=== PATIENT | male | born 1940 | race Caucasian/White ===

== ENCOUNTER 2017-04-11 03:48 | Emergency (ER) | payer MEDICARE, OTHER ==
[2017-04-11 04:01] VITALS: BP 159/98
[2017-04-11] MEDS ORDERED: Lidocaine 1% 2 ML ONE (04:55)
--- NOTE | 2017-04-11 05:21 | EDM.PDOC ---
ED HPI GENERAL MEDICAL PROBLEM - General Chief Complaint: Respiratory Problem Stated Complaint: SOB Time Seen by Provider: 04/11/17 03:52 Source of Information: Reports: Patient, RN Notes Reviewed, Other (2 neighbors/ friends) History Limitations: Reports: No Limitations - History of Present Illness INITIAL COMMENTS - FREE TEXT/NARRATIVE: The patient states that he has been experiencing dyspnea with minimal exertion, and a cough productive of colorless phlegm, for approximately one year, but that it has been getting worse. He states that he has not had this medically evaluated. No recent fever. Here in the ED, the patient's oxygen saturation is noted to be about 89-91% on room air. The patient states that he was diagnosed with prostate cancer approximately October 2015. He does not know what stage it is. He has been receiving radiation therapy along with Lupron and Prolia injections every 6 months. He states that because of his condition, he has had to go to the bathroom frequently for about the past year, and the act of getting up to go to the bathroom causes him to have immediate dyspnea. The patient has a long smoking history, currently 1/2 pack per day, down from 1 pack per day, starting when he was 20 years old. The patient reports that he has had bilateral ankle edema for the past 2 or 3 months. The patient is very thin, but states that while he lost quite a bit of weight several years ago, he has not lost any weight recently. The patient's PCP is Dr. Boyd. - Related Data Allergies Allergy/AdvReac Type Severity Reaction Status Date / Time No Known Allergies Allergy Verified 04/11/17 04:03 Home Meds: Home Meds Denosumab [Prolia] 60 mg SUBCUT ASDIRECTED 04/11/17 [History] Leuprolide Acetate [Eligard] 45 mg SQ ASDIRECTED 04/11/17 [History] Tamsulosin [Flomax] 1 cap PO DAILY 04/11/17 [History] Past Medical History Genitourinary History: Reports: BPH Oncologic (Cancer) History: Reports: Prostate - Past Surgical History HEENT Surgical History: Reports: Oral Surgery (dental extractions) Dermatological Surgical History: Reports: Skin Graft (left thumb) Social & Family History - Tobacco Use Smoking Status *Q: Current Every Day Smoker Years of Tobacco use: 57 Packs/Tins Daily: 0.5 Packs/Tins Daily Comment: Down from 1 ppd - Caffeine Use Caffeine Use: Reports: None - Alcohol Use Alcohol Use History: Yes Alcohol Use Frequency: Socially - Recreational Drug Use Recreational Drug Use: No - Living Situation & Occupation Living situation: Reports: Single, Alone Occupation: Retired ([employer]) ED ROS GENERAL - Review of Systems Review Of Systems: See Below Constitutional: Reports: No Symptoms HEENT: Reports: No Symptoms Respiratory: Reports: Cough, Sputum (clear) Cardiovascular: Reports: Dyspnea on Exertion, Edema (bilateral ankles) Endocrine: Reports: No Symptoms GI/Abdominal: Reports: No Symptoms : Reports: No Symptoms Musculoskeletal: Reports: No Symptoms Skin: Reports: No Symptoms Neurological: Reports: No Symptoms Psychiatric: Reports: No Symptoms Hematologic/Lymphatic: Reports: No Symptoms Immunologic: Reports: No Symptoms ED EXAM, GENERAL - Physical Exam Exam: See Below Exam Limited By: No Limitations General Appearance: Alert, No Apparent Distress, Cachetic Eye Exam: Bilateral Eye: Normal Inspection Ears: Normal External Exam, Hearing Grossly Normal Nose: Normal Inspection, No Blood Throat/Mouth: Normal Inspection, Normal Lips, Normal Voice, No Airway Compromise Head: Atraumatic, Normocephalic Neck: Normal Inspection, Full Range of Motion Respiratory/Chest: No Respiratory Distress, No Accessory Muscle Use, Decreased Breath Sounds (throughout lungs, especially bibasillarly). No: Crackles, Rhonchi, Wheezing, Prolonged Expiration Cardiovascular: Normal Peripheral Pulses, Regular Rate, Rhythm, No Gallop, No JVD, No Murmur, No Rub Peripheral Pulses: 4+: Radial (L), Radial (R) GI/Abdominal: Normal Bowel Sounds, Soft, Non-Tender, No Organomegaly, No Distention, No Abnormal Bruit, No Mass (Male) Exam: Deferred Rectal (Males) Exam: Deferred Back Exam: Normal Inspection, Full Range of Motion, NT Extremities: Normal Inspection, Normal Range of Motion, Normal Capillary Refill , Other (1-2+ pitting edema bilateral ankles) Neurological: Alert, Oriented, Normal Cognition, No Motor/Sensory Deficits Psychiatric: Normal Affect Skin Exam: Warm, Dry, Intact, Normal Color, No Rash EKG INTERPRETATION EKG Date: 04/11/17 Time: 04:38 Rhythm: NSR Rate (Beats/Min): 89 [place]: LAD-Left [place] Deviation P-Wave: Enlarged (SIMI) QRS: Other (LPFB) ST-T: Other (J-point elevation in inferior leads. No ischemic changes.) QT: Normal Comparison: NA - No Prior EKG Course - Vital Signs Last Recorded V/S: Last Vital Signs Temp 36.6 C 04/11/17 03:51 Pulse 97 04/11/17 03:51 Resp 24 H 04/11/17 03:51 BP 159/98 H 04/11/17 03:51 Pulse Ox 91 L 04/11/17 03:51 - Orders/Labs/Meds Orders: Active Orders 24 hr Category Date Time Status EKG Documentation Completion [RC] STAT Care 04/11/17 04:21 Active Evaluate for Home Oxygen [RT Evaluate for Home Oxygen] Care 04/11/17 07:27 Inactive [RC] ASDIRECTED Evaluate for Home Oxygen [RT Oxygen Therapy w/Exercise] Care 04/11/17 07:27 Inactive [RC] ASDIRECTED RT Evaluate for Home Oxygen [RC] Click to Edit Care 04/11/17 07:30 Inactive RT Evaluate for Home Oxygen [RC] Click to Edit Care 04/11/17 07:36 Active Chest 2V [CR] Stat Exams 04/11/17 04:21 Taken Chest wo Cont [CT] Stat Exams 04/11/17 05:25 Taken Labs: Laboratory Tests 04/11/17 04/11/17 04/11/17 Range/Units 03:57 03:57 03:57 WBC 6.33 (4.23-9.07) K/mm3 RBC 5.77 (4.63-6.08) M/mm3 Hgb 16.8 (13.7-17.5) gm/L Hct 50.7 (40.1-51.0) % MCV 87.9 (79.0-92.2) fl MCH 29.1 (25.7-32.2) pg MCHC 33.1 (32.2-35.5) g/dl RDW Std Deviation 51.4 H (35.1-43.9) fL Plt Count 199 (163-337) K/mm3 MPV 10.3 (9.4-12.3) fl Neutrophils % (Manual) 53 (40-60) % Band Neutrophils % 0 (0-10) % Lymphocytes % (Manual) 41 H (20-40) % Atypical Lymphs % 0 % Monocytes % (Manual) 4 (2-10) % Eosinophils % (Manual) 2 (0.8-7.0) % Basophils % (Manual) 0 L (0.2-1.2) Platelet Estimate Adequate RBC Morph Comment Normal PT 10.7 (8.0-13.0) SECONDS INR 0.98 APTT 28 (22-36) SECONDS D-Dimer, Quantitative 0.37 (0.19-0.59) mg/L Puncture Site ABG pH (7.35-7.45) ABG pCO2 (35.0-45.0) mmHg ABG pO2 (80.0-100.0) mmHg ABG HCO3 (22.0-26.0) meq/L ABG O2 Saturation (96.0-97.0) % ABG Base Excess (-2-2.0) A-a Gradient mmHg O2 Delivery Device FiO2 (21.00-100.00) % Sodium 141 (136-145) mEq/L Potassium 4.4 (3.5-5.1) mEq/L Chloride 104 (98-107) mEq/L Carbon Dioxide 28 (21-32) mEq/L Anion Gap 13.4 (5-15) BUN 28 H (7-18) mg/dL Creatinine 1.1 (0.7-1.3) mg/dL Est Cr Clr Drug Dosing 42.58 mL/min Estimated GFR (MDRD) > 60 (>60) mL/min BUN/Creatinine Ratio 25.5 H (14-18) Glucose 118 H (83-115) mg/dL Lactic Acid (0.4-2.0) mmol/L Calcium 9.1 (8.5-10.1) mg/dL Total Bilirubin 0.6 (0.2-1.0) mg/dL AST 17 (15-37) U/L ALT 19 (16-63) U/L Alkaline Phosphatase 62 (46-116) U/L Troponin I < 0.017 (0.00-0.056) ng/mL NT-Pro-B Natriuret Pep 213 (0-450) pg/mL Total Protein 7.6 (6.4-8.2) g/dl Albumin 3.8 (3.4-5.0) g/dl Globulin 3.8 gm/dL Albumin/Globulin Ratio 1.0 (1-2) 04/11/17 04/11/17 Range/Units 05:00 05:18 WBC (4.23-9.07) K/mm3 RBC (4.63-6.08) M/mm3 Hgb (13.7-17.5) gm/L Hct (40.1-51.0) % MCV (79.0-92.2) fl MCH (25.7-32.2) pg MCHC (32.2-35.5) g/dl RDW Std Deviation (35.1-43.9) fL Plt Count (163-337) K/mm3 MPV (9.4-12.3) fl Neutrophils % (Manual) (40-60) % Band Neutrophils % (0-10) % Lymphocytes % (Manual) (20-40) % Atypical Lymphs % % Monocytes % (Manual) (2-10) % Eosinophils % (Manual) (0.8-7.0) % Basophils % (Manual) (0.2-1.2) Platelet Estimate RBC Morph Comment PT (8.0-13.0) SECONDS INR APTT (22-36) SECONDS D-Dimer, Quantitative (0.19-0.59) mg/L Puncture Site Rt radial ABG pH 7.40 (7.35-7.45) ABG pCO2 39.3 (35.0-45.0) mmHg ABG pO2 56.0 L (80.0-100.0) mmHg ABG HCO3 23.7 (22.0-26.0) meq/L ABG O2 Saturation 87.9 L (96.0-97.0) % ABG Base Excess -0.5 (-2-2.0) A-a Gradient 30 mmHg O2 Delivery Device Room air FiO2 0.00 L (21.00-100.00) % Sodium (136-145) mEq/L Potassium (3.5-5.1) mEq/L Chloride (98-107) mEq/L Carbon Dioxide (21-32) mEq/L Anion Gap (5-15) BUN (7-18) mg/dL Creatinine (0.7-1.3) mg/dL Est Cr Clr Drug Dosing mL/min Estimated GFR (MDRD) (>60) mL/min BUN/Creatinine Ratio (14-18) Glucose (83-115) mg/dL Lactic Acid 1.0 (0.4-2.0) mmol/L Calcium (8.5-10.1) mg/dL Total Bilirubin (0.2-1.0) mg/dL AST (15-37) U/L ALT (16-63) U/L Alkaline Phosphatase (46-116) U/L Troponin I (0.00-0.056) ng/mL NT-Pro-B Natriuret Pep (0-450) pg/mL Total Protein (6.4-8.2) g/dl Albumin (3.4-5.0) g/dl Globulin gm/dL Albumin/Globulin Ratio (1-2) Meds: Medications Discontinued Medications Generic Name Dose Route Start Last Admin Trade Name Freq PRN Reason Stop Dose Admin Lidocaine HCl Confirm 04/11/17 04:55 04/11/17 07:37 Xylocaine-Mpf 1% Administered 04/11/17 04:56 0.4 ml Dose Administration 2 mls @ as directed .ROUTE .STK-MED ONE - Re-Assessments/Exams Free Text/Narrative Re-Assessment/Exam: 04/11/17 05:27 Two-view chest radiograph reviewed. Cardiac silhouette is within normal limits. No pulmonary vascular congestion. No pleural effusions. There is substantial hyperinflation and diaphragmatic flattening, consistent with COPD. 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 There appear to be bilateral upper lobe infiltrates, versus pulmonary fibrosis. No pneumothorax. Formal read per the Radiologist pending. 04/11/17 05:31 I have ordered a CT of the chest without IV contrast to further elucidate the bilateral upper lobe opacities, whether they are an infiltrate or fibrosis. As above, the patient's chest radiograph shows a substantial hyperinflation, consistent with COPD, however, while the patient has diminished breath sounds throughout, especially at the bases, he does not have any wheezing, and his ABG shows hypoxemia, but is otherwise normal, without respiratory acidosis. Hypoxemia itself does not cause dyspnea, therefore it is unclear at this time what the cause of the patient's dyspnea is. 04/11/17 06:44 CT of the chest without contrast is read by virtual radiology as: 1. Moderate panlobular emphysematous changes. [place]a in the lung bases. 2. Multiple irregularly-shaped nodules seen bilaterally. Infection versus neoplasm 04/11/17 06:45 I would interpret from the CT findings that the patient does not have bilateral upper lobe infiltrates or pulmonary fibrosis, rather, the bibasilar bullae are responsible for the decreased density in the bases compared with the apices. The irregularly-shaped nodules are likely metastases. The patient does not have a fever or elevated WBC count. While he almost certainly has advanced COPD, his blood gas shows that he is not experiencing a COPD exacerbation. Because COPD exacerbations are almost always associated with infection, we can conclude that the patient does not appear to have an infectious process, at least at this time, therefore I do not see an indication for antibiotics. The remainder of the patient's workup is unremarkable. The patient does not have a pulmonary embolus, is not anemic, has not suffered an acute AR, is not in CHF or renal failure, and is not suffering from an electrolyte abnormality. I do not see a clear indication for admitting the patient to the hospital. With an oxygen saturation of 89-91% on room air, he would not qualify for oxygen at rest, although we can ambulate him here in the ED and see if he might qualify for oxygen with ambulation. 04/11/17 07:18 The respiratory therapist found that the patient's oxygen saturations dropped to about 80% with exertion, however, it did not come up with supplemental oxygen , until the patient rested. We will order the patient to receive supplemental oxygen 2 L/m continuously while at rest, and increase it to 6 L/m with exertion. I will advise the patient to increase his oxygen a few minutes prior to exerting himself. 04/11/17 07:40 The above was discussed with the patient and his 2 neighbors. The patient does not seem too excited about wearing oxygen at rest, but he is agreeable to wearing oxygen with exertion. Departure - Departure Time of Disposition: 07:42 Disposition: Home, Self-Care 01 Condition: Fair Clinical Impression: Emphysema of lung, Dyspnea on exertion - Discharge Information Referrals: Deepak Boyd MD [Primary Care Provider] - Forms: ED Department Discharge Additional Instructions: You were seen in the emergency room for shortness of breath with even minimal exertion, and a cough, for about the past year. Workup in the ER included blood work, an ABG, an ECG, a chest x-ray, and a CT scan of your chest. Your workup shows that you almost certainly have advanced emphysema, which is responsible for your symptoms, although you are not suffering from a COPD exacerbation. You do not have pneumonia. You do not have a blood clot in your lungs. You have not suffered a heart attack. You are not anemic, you are not suffering from congestive heart failure or kidney failure, and your electrolytes are normal. You qualify for supplemental oxygen with exertion, and you may benefit from supplemental oxygen at rest. We are recommending that you wear 2 L of oxygen at rest, and increase it to 6 L a few minutes before you exert yourself. Return it to 2 L after you rest again. We recommend that you follow-up with your PCP, Dr. Boyd, this coming week. If any other problems, please do not hesitate to return to the ER. - My Orders Last 24 Hours: My Active Orders 04/11/17 04:21 EKG Documentation Completion [RC] STAT Chest 2V [CR] Stat 04/11/17 05:25 Chest wo Cont [CT] Stat 04/11/17 07:27 Evaluate for Home Oxygen [RT Evaluate for Home Oxygen] [RC] ASDIRECTED Evaluate for Home Oxygen [RT Oxygen Therapy w/Exercise] [RC] ASDIRECTED 04/11/17 07:30 RT Evaluate for Home Oxygen [RC] Click to Edit - Assessment/Plan Last 24 Hours: My Active Orders 04/11/17 04:21 EKG Documentation Completion [RC] STAT Chest 2V [CR] Stat 04/11/17 05:25 Chest wo Cont [CT] Stat 04/11/17 07:27 Evaluate for Home Oxygen [RT Evaluate for Home Oxygen] [RC] ASDIRECTED Evaluate for Home Oxygen [RT Oxygen Therapy w/Exercise] [RC] ASDIRECTED 04/11/17 07:30 RT Evaluate for Home Oxygen [RC] Click to Edit
--- NOTE | 2017-04-12 10:25 | CT ---
CT chest Technique: Multiple axial sections through the chest were obtained. Intravenous contrast was not utilized. Comparison: Prior chest x-ray performed earlier on the same day. Findings: Diffuse appearing interstitial fibrosis with diffuse emphysematous change. Both lungs show scattered nodules which are more prominent on the right side. Nodular pleural thickening is seen within the left lung base measuring 9 mm. Lungs otherwise are clear. Bone window settings show scattered degenerative endplate spurring noted within the spine. Impression: 1. Severe emphysematous change with diffuse interstitial fibrosis. 2. Small scattered irregular nodules within both lungs, more numerous on the right side. Differential includes scattered areas of bronchopneumonia versus metastatic nodules. Treatment as infection could be considered with repeat noncontrast chest CT obtained in 6 weeks. Diagnostic code #9 I agree with preliminary report issued by [facility] ([facility] preliminary report dictated on 04/11/17, 7:29 AM Central Time)
--- NOTE | 2017-04-12 10:25 | CR ---
Chest: Two views of the chest were obtained. Comparison: Previous chest x-ray of 10/18/09. Heart size and mediastinum are within normal limits. Lungs are hyperinflated compatible with emphysematous change. Questionably increased lung markings from prior study. Difficult to exclude superimposed bronchitis with chronic change. Degenerative spurring is noted within the spine. Impression: 1. Emphysematous change. 2. Questionable increased lung markings from prior study and difficult to exclude bronchitis superimposed upon chronic change. 3. Other incidental findings. Diagnostic code #3
== END 2017-04-11 08:15 | disposition home or self-care (01) ==
LOC: JD.ED 03:48
DX: J43.9 Emphysema, unspecified (principal); F17.210 Nicotine dependence, cigarettes, uncomplicated; Z79.899 Other long term (current) drug therapy
CPT/HCPCS: 36415; 36600; 71020; 71020-26; 71250; 71250-26; 80053; 82803; 83605; 83880; 84484; 85025; 85379; 85610; 85730; 93005; 93010; 99285-25

== ENCOUNTER 2022-05-30 16:39 | Emergency (ER) | payer MEDICARE, OTHER ==
[2022-05-30] MEDS ORDERED: Sodium Chloride 0.9% 10 ML Syringe FLUSH PRN (17:09)
[2022-05-30] MEDS ORDERED: Albuterol/Ipratropium 3.0-0.5 MG/3 ML Neb Soln NEB ONE (17:31)
[2022-05-30] MEDS ORDERED: Sodium Chloride 0.9% 1,000 ML IV SCH (17:45)
[2022-05-30 17:59] LABS: ESTIMATED GFR 67 mL/min (>60)
[2022-05-30] MEDS ORDERED: diphenhydrAMINE 50 MG/ML SDV IVPUSH PRN (19:07)
[2022-05-30] MEDS ORDERED: Famotidine 20 MG/2 ML SDV IVPUSH PRN (19:07)
[2022-05-30] MEDS ORDERED: methylPREDNISolone Sodium Succinate 125 MG/2 ML SDV IVPUSH PRN (19:07)
[2022-05-30] MEDS ORDERED: EPINEPHrine 1 MG/ML SDV IM PRN (19:07)
[2022-05-30] MEDS ORDERED: Sodium Chloride 0.9% 10 ML Syringe FLUSH SCH (19:15)
[2022-05-30] MEDS ORDERED: methylPREDNISolone Sodium Succinate 125 MG/2 ML SDV IVPUSH ONE (19:16)
[2022-05-30 23:00] VITALS: BP 148/87; PULSE 92
== END 2022-05-30 22:58 | disposition home or self-care (01) ==
LOC: JD.ED 16:39
DX: U07.1 COVID-19 (principal)
CPT/HCPCS: 36415; 71045; 80053; 83605; 83880; 84484; 85025; 85379; 86140; 93005; 94640; 96361; 96374; 99285; J2930; J3490; J7030; M0222; Q0222; J7620-GY

== ENCOUNTER 2023-06-08 16:08 | Inpatient (IN) | payer MEDICARE, OTHER ==
[2023-06-08 17:36] LABS: BASOPHILS PERCENT AUTO 0.2 % (0.0-1.0); EOSINOPHILS ABSOLUTE AUTO 0.1 K/mm3 (0.0-0.4); EOSINOPHILS PERCENT AUTO 0.4 % (0.0-6.0); HEMATOCRIT 48.8 % (42.0-52.0); HEMOGLOBIN 15.1 gm/dl (14.0-18.0); IMMATURE GRAN ABSOLUTE AUTO 0.05 K/mm3 (0.00-0.05); IMMATURE GRAN PERCENT AUTO 0.4 % (0.0-0.4); LYMPHOCYTES ABSOLUTE AUTO 0.7 K/mm3 (1.0-4.8); LYMPHOCYTES PERCENT AUTO 5.4 % (24.0-44.0); MEAN CORPUSCULAR HEMOGLOBIN 27.5 pg (28.0-32.0); MEAN CORPUSCULAR HGB CONC 30.9 g/dl (32.0-36.0); MEAN CORPUSCULAR VOLUME 88.7 fl (83.0-99.0); MEAN PLATELET VOLUME 9.8 fl (9.4-12.4); MONOCYTES ABSOLUTE AUTO 1.1 K/mm3 (0.0-0.8); MONOCYTES PERCENT AUTO 8.2 % (0.0-8.0); NEUTROPHILS ABSOLUTE AUTO 11.6 K/mm3 (1.8-7.7); NEUTROPHILS PERCENT AUTO 85.4 % (41.0-71.0); PLATELET COUNT,PLT 324 K/mm3 (150-400); WHITE BLOOD CELL COUNT,WBC 13.58 K/mm3 (3.9-11.3)
[2023-06-08 17:58] LABS: ALBUMIN 3.8 g/dl (3.4-5.0); ANION GAP 6.7 (5-15); BILIRUBIN TOTAL 0.5 mg/dL (0.2-1.0); BUN/CREATININE RATIO 15.6 (14-18); CALCIUM 9.8 mg/dL (8.5-10.1); CREATININE 0.9 mg/dL (0.7-1.3); EST CRCL DRUG DOSING (CG) 53.43 mL/min; POTASSIUM,K 4.7 mEq/L (3.5-5.1); PROTEIN TOTAL,TP 7.6 g/dl (6.4-8.2)
[2023-06-08 18:22] LABS: APPEARANCE,URINE CLOUDY (Clear); BILIRUBIN,URINE NEGATIVE (Negative); COLOR,URINE YELLOW (Yellow); GLUCOSE,URINE NEGATIVE (Negative); KETONES,URINE TRACE (Negative); LEUKOCYTE ESTERASE,URINE 1+ (Negative); NITRITE,URINE NEGATIVE (Negative); OCCULT BLOOD,URINE 2+ (Negative); PH,URINE 5.5 (5.0-8.0); PROTEIN,URINE 3+ (Negative); UROBILINOGEN,URINE 0.2 (0.2-1.0)
[2023-06-08 19:02] LABS: BACTERIA,URINE MODERATE /hpf (FEW); RBC,URINE 20-30 /hpf (0-5); SQUAMOUS EPITHELIAL CELLS,UR 0-5 /hpf (0-5); WBC,URINE >100 /hpf (0-5)
[2023-06-08 19:03] LABS: MUCUS,URINE FEW /hpf (FEW)
[2023-06-08] MEDS ORDERED: Magnesium Sulfate/Water 2 GM/50 ML BAG IV STA (19:43)
[2023-06-08] MEDS ORDERED: Albuterol/Ipratropium 3.0-0.5 MG/3 ML Neb Soln NEB ONE (19:45)
[2023-06-08] MEDS ORDERED: methylPREDNISolone Sodium Succinate 125 MG/2 ML SDV IVPUSH ONE (22:49)
[2023-06-08] MEDS: Levofloxacin/Dextrose 5%-Water 750 MG in Premix Bag 1 BAG IV SCH (23:05)
[2023-06-09] MEDS ORDERED: Albuterol/Ipratropium 3.0-0.5 MG/3 ML Neb Soln NEB PRN (00:41)
[2023-06-09] MEDS ORDERED: Fluticasone NASAL Spray 16 GM Bottle NAS PRN (06:49)
[2023-06-09] MEDS ORDERED: LORazepam 0.5 MG Tab PO PRN (07:12)
[2023-06-09] MEDS ORDERED: Acetaminophen 325 MG Tab PO PRN (07:13)
[2023-06-09] MEDS ORDERED: Levalbuterol HCl 0.63 MG/3 ML Neb INH SCH (09:00)
[2023-06-09] MEDS: Formoterol/Mometasone 200-5 MCG 8.8 GM Inhaler IH SCH ×2 (09:02→20:31)
[2023-06-09] MEDS: Finasteride 5 MG Tab PO SCH (09:38)
[2023-06-09] MEDS: guaiFENesin 600 MG Tab.ER PO SCH ×2 (09:38→20:49)
[2023-06-09] MEDS: busPIRone 5 MG Tab PO SCH ×2 (09:38→20:52)
[2023-06-09] MEDS: Docusate Sodium 100 MG Cap PO SCH ×2 (09:38→20:50)
[2023-06-09] MEDS: Sennosides 8.6 MG Tab PO SCH (09:38)
[2023-06-09] MEDS: Tamsulosin 0.4 MG Cap.ER PO SCH ×2 (09:38→20:49)
[2023-06-09 09:53] LABS: BASOPHILS PERCENT AUTO 0.2 % (0.0-1.0); HEMATOCRIT 41.2 % (42.0-52.0); IMMATURE GRAN ABSOLUTE AUTO 0.01 K/mm3 (0.00-0.05); IMMATURE GRAN PERCENT AUTO 0.2 % (0.0-0.4); LYMPHOCYTES ABSOLUTE AUTO 0.4 K/mm3 (1.0-4.8); LYMPHOCYTES PERCENT AUTO 8.8 % (24.0-44.0); MEAN CORPUSCULAR HEMOGLOBIN 28.4 pg (28.0-32.0); MEAN CORPUSCULAR VOLUME 88.8 fl (83.0-99.0); MEAN PLATELET VOLUME 9.6 fl (9.4-12.4); MONOCYTES ABSOLUTE AUTO 0.2 K/mm3 (0.0-0.8); MONOCYTES PERCENT AUTO 4.5 % (0.0-8.0); NEUTROPHILS PERCENT AUTO 86.3 % (41.0-71.0); PLATELET COUNT,PLT 250 K/mm3 (150-400); RED BLOOD CELL COUNT 4.64 M/mm3 (4.52-5.90); WHITE BLOOD CELL COUNT,WBC 4.66 K/mm3 (3.9-11.3)
[2023-06-09 10:01] LABS: HEMOGLOBIN 13.2 gm/dl (14.0-18.0)
[2023-06-09 10:04] LABS: A/G RATIO 0.9 (1-2); ALBUMIN 2.9 g/dl (3.4-5.0); ANION GAP 8.7 (5-15); BILIRUBIN TOTAL 0.4 mg/dL (0.2-1.0); CALCIUM 9.1 mg/dL (8.5-10.1); EST CRCL DRUG DOSING (CG) 49.55 mL/min; MAGNESIUM 1.7 mg/dL (1.8-2.4); POTASSIUM,K 4.7 mEq/L (3.5-5.1); PROTEIN TOTAL,TP 6.1 g/dl (6.4-8.2)
[2023-06-09] MEDS: Levalbuterol HCl 0.63 MG/3 ML Neb INH SCH ×3 (15:17→21:39)
[2023-06-09] MEDS: Levofloxacin/Dextrose 5%-Water 750 MG in Premix Bag 1 BAG IV SCH (20:49)
[2023-06-09] MEDS ORDERED: Levalbuterol HCl 0.63 MG/3 ML Neb INH PRN (21:00)
[2023-06-09] MEDS ORDERED: Melatonin 3 MG Tab PO PRN (21:00)
[2023-06-10 05:29] LABS: A/G RATIO 0.9 (1-2); ALBUMIN 2.5 g/dl (3.4-5.0); ANION GAP 5.9 (5-15); BILIRUBIN TOTAL 0.4 mg/dL (0.2-1.0); CALCIUM 8.6 mg/dL (8.5-10.1); CREATININE 0.8 mg/dL (0.7-1.3); EST CRCL DRUG DOSING (CG) 62.84 mL/min; POTASSIUM,K 3.9 mEq/L (3.5-5.1); PROTEIN TOTAL,TP 5.2 g/dl (6.4-8.2)
[2023-06-10 05:51] LABS: BASOPHILS PERCENT AUTO 0.4 % (0.0-1.0); EOSINOPHILS ABSOLUTE AUTO 0.2 K/mm3 (0.0-0.4); EOSINOPHILS PERCENT AUTO 2.8 % (0.0-6.0); HEMATOCRIT 36.7 % (42.0-52.0); HEMOGLOBIN 12.1 gm/dl (14.0-18.0); IMMATURE GRAN ABSOLUTE AUTO 0.03 K/mm3 (0.00-0.05); IMMATURE GRAN PERCENT AUTO 0.4 % (0.0-0.4); LYMPHOCYTES ABSOLUTE AUTO 0.9 K/mm3 (1.0-4.8); LYMPHOCYTES PERCENT AUTO 11.3 % (24.0-44.0); MEAN CORPUSCULAR HEMOGLOBIN 28.8 pg (28.0-32.0); MEAN CORPUSCULAR VOLUME 87.4 fl (83.0-99.0); MEAN PLATELET VOLUME 10.1 fl (9.4-12.4); MONOCYTES PERCENT AUTO 12.8 % (0.0-8.0); NEUTROPHILS ABSOLUTE AUTO 5.8 K/mm3 (1.8-7.7); NEUTROPHILS PERCENT AUTO 72.3 % (41.0-71.0); PLATELET COUNT,PLT 212 K/mm3 (150-400); WHITE BLOOD CELL COUNT,WBC 7.97 K/mm3 (3.9-11.3)
[2023-06-10] MEDS: busPIRone 5 MG Tab PO SCH ×2 (08:31→20:30)
[2023-06-10] MEDS: Finasteride 5 MG Tab PO SCH (08:31)
[2023-06-10] MEDS: Docusate Sodium 100 MG Cap PO SCH ×2 (08:31→20:30)
[2023-06-10] MEDS: guaiFENesin 600 MG Tab.ER PO SCH ×2 (08:31→20:30)
[2023-06-10] MEDS: Tamsulosin 0.4 MG Cap.ER PO SCH ×2 (08:31→20:30)
[2023-06-10] MEDS: Sennosides 8.6 MG Tab PO SCH (08:31)
[2023-06-10] MEDS: Levalbuterol HCl 0.63 MG/3 ML Neb INH SCH (08:41)
[2023-06-10] MEDS: Formoterol/Mometasone 200-5 MCG 8.8 GM Inhaler IH SCH ×2 (08:41→20:42)
[2023-06-10] MEDS ORDERED: predniSONE 20 MG Tab PO ONE (09:00)
[2023-06-10] MEDS: cefTRIAXone 2 GM in Sodium Chloride 0.9% 100 ML IV SCH (09:07)
[2023-06-10] MEDS: Albuterol/Ipratropium 3.0-0.5 MG/3 ML Neb Soln NEB SCH ×3 (09:19→20:42)
[2023-06-10] MEDS: Enoxaparin 40 MG/0.4 ML Syringe SUBCUT SCH (10:07)
[2023-06-11] MEDS: Albuterol/Ipratropium 3.0-0.5 MG/3 ML Neb Soln NEB SCH ×2 (05:32→09:02)
[2023-06-11 06:00] LABS: ANION GAP 9.7 (5-15); BUN/CREATININE RATIO 18.8 (14-18); C-REACTIVE PROTEIN 0.3 mg/dL (<1.0); CALCIUM 8.5 mg/dL (8.5-10.1); CREATININE 0.8 mg/dL (0.7-1.3); EST CRCL DRUG DOSING (CG) 64.28 mL/min; MAGNESIUM 1.7 mg/dL (1.8-2.4); POTASSIUM,K 3.7 mEq/L (3.5-5.1)
[2023-06-11] MEDS ORDERED: predniSONE 20 MG Tab PO SCH (07:00)
[2023-06-11] MEDS ORDERED: Magnesium Sulfate/Water 2 GM in Premix Bag 1 BAG IV ONE (07:30)
[2023-06-11] MEDS: Enoxaparin 40 MG/0.4 ML Syringe SUBCUT SCH (08:29)
[2023-06-11] MEDS: Sennosides 8.6 MG Tab PO SCH (08:29)
[2023-06-11] MEDS: Tamsulosin 0.4 MG Cap.ER PO SCH (08:29)
[2023-06-11] MEDS: guaiFENesin 600 MG Tab.ER PO SCH (08:29)
[2023-06-11] MEDS: busPIRone 5 MG Tab PO SCH (08:29)
[2023-06-11] MEDS: Finasteride 5 MG Tab PO SCH (08:29)
[2023-06-11] MEDS: Docusate Sodium 100 MG Cap PO SCH (08:29)
[2023-06-11] MEDS: Formoterol/Mometasone 200-5 MCG 8.8 GM Inhaler IH SCH (09:02)
[2023-06-11] MEDS: cefTRIAXone 2 GM in Sodium Chloride 0.9% 100 ML IV SCH (10:35)
[2023-06-11 12:11] VITALS: BP 130/76; PULSE 104
== END 2023-06-11 14:13 | disposition other institution (70) | DRG 189 ==
LOC: JD.ED 16:08 → JD.MS 22:44
PROVIDERS: ADMIT Internal Medicine; ATTEND Internal Medicine
DX: J96.21 Acute and chronic respiratory failure with hypoxia (principal); N39.0 Urinary tract infection, site not specified; J44.1 Chronic obstructive pulmonary disease with (acute) exacerbation; Z20.822 Contact with and (suspected) exposure to COVID-19; N30.01 Acute cystitis with hematuria; J43.2 Centrilobular emphysema; Z66 Do not resuscitate; K59.09 Other constipation; N40.1 Benign prostatic hyperplasia with lower urinary tract symptoms; N39.498 Other specified urinary incontinence; Z99.3 Dependence on wheelchair; Z85.46 Personal history of malignant neoplasm of prostate; Z99.81 Dependence on supplemental oxygen; Z11.52 Encounter for screening for COVID-19; Z79.899 Other long term (current) drug therapy; Z87.891 Personal history of nicotine dependence
CPT/HCPCS: 36415; 71250; 80053; 81001; 83605; 83735; 84484; 85025; 87040; 87086; 87088; 87186; 93005; 94640; 96365; 99285; J3475; 80048; 86140; 87641; 93010; 94667; 94668; 94761; 97110-GP; 97162-GP; 97530-GP; 99284; A9270-GY; J0696; J1650; J1956; J2930; J3490; J7512; J7620-GY; U0002

== ENCOUNTER 2024-07-20 14:44 | Emergency (ER) | payer MEDICARE, OTHER ==
[2024-07-20 14:54] VITALS: BP 140/79; PULSE 108
[2024-07-20 15:25] LABS: BASOPHILS PERCENT AUTO 0.1 % (0.0-1.0); HEMATOCRIT 46.6 % (42.0-52.0); HEMOGLOBIN 14.3 gm/dl (14.0-18.0); IMMATURE GRAN ABSOLUTE AUTO 0.02 K/mm3 (0.00-0.05); IMMATURE GRAN PERCENT AUTO 0.2 % (0.0-0.4); LYMPHOCYTES ABSOLUTE AUTO 0.2 K/mm3 (1.0-4.8); LYMPHOCYTES PERCENT AUTO 2.5 % (24.0-44.0); MEAN CORPUSCULAR HEMOGLOBIN 28.8 pg (28.0-32.0); MEAN CORPUSCULAR HGB CONC 30.7 g/dl (32.0-36.0); MONOCYTES ABSOLUTE AUTO 0.2 K/mm3 (0.0-0.8); MONOCYTES PERCENT AUTO 2.6 % (0.0-8.0); NEUTROPHILS ABSOLUTE AUTO 7.7 K/mm3 (1.8-7.7); NEUTROPHILS PERCENT AUTO 94.6 % (41.0-71.0); PLATELET COUNT,PLT 218 K/mm3 (150-400); RED BLOOD CELL COUNT 4.96 M/mm3 (4.52-5.90); WHITE BLOOD CELL COUNT,WBC 8.15 K/mm3 (3.9-11.3)
[2024-07-20 15:50] LABS: A/G RATIO 0.9 (1-2); ALBUMIN 3.2 g/dl (3.4-5.0); ANION GAP 6.3 (5-15); BILIRUBIN TOTAL 0.4 mg/dL (0.2-1.0); C-REACTIVE PROTEIN 10.24 mg/dL (<0.30); CALCIUM 9.5 mg/dL (8.5-10.1); EST CRCL DRUG DOSING (CG) 41.77 mL/min; POTASSIUM,K 5.3 mEq/L (3.5-5.1); PROTEIN TOTAL,TP 6.6 g/dl (6.4-8.2)
[2024-07-20 15:53] LABS: LACTIC ACID 1.2 mmol/L (0.4-2.0)
[2024-07-20 16:23] LABS: SLIDE REVIEW ABNORMAL SMEAR
[2024-07-20] MEDS: Sodium Chloride 0.9% 10 ML Syringe FLUSH PRN (16:32)
[2024-07-20] MEDS: methylPREDNISolone Sodium Succinate 40 MG/1 ML SDV IVPUSH ONE (16:32)
[2024-07-20 17:08] LABS: APPEARANCE,URINE CLEAR (Clear); BILIRUBIN,URINE NEGATIVE (Negative); COLOR,URINE YELLOW (Yellow); GLUCOSE,URINE NEGATIVE (Negative); KETONES,URINE NEGATIVE (Negative); LEUKOCYTE ESTERASE,URINE NEGATIVE (Negative); NITRITE,URINE NEGATIVE (Negative); OCCULT BLOOD,URINE NEGATIVE (Negative); PROTEIN,URINE 1+ (Negative); UROBILINOGEN,URINE 0.2 (0.2-1.0)
[2024-07-20 17:27] LABS: BACTERIA,URINE FEW /hpf (FEW); EPITHELIAL CELLS,URINE 0-5 /hpf (0-5); MUCUS,URINE NOT SEEN /hpf (FEW); RBC,URINE 0-5 /hpf (0-5); WBC,URINE 0-5 /hpf (0-5)
[2024-07-20] MEDS: Levalbuterol HCl 1.25 MG/0.5 ML Neb NEB ONE (17:36)
== END 2024-07-20 19:00 | disposition home or self-care (01) ==
LOC: JD.ED 14:44
DX: J96.11 Chronic respiratory failure with hypoxia (principal); J44.1 Chronic obstructive pulmonary disease with (acute) exacerbation; Z79.51 Long term (current) use of inhaled steroids; Z79.52 Long term (current) use of systemic steroids; Z79.899 Other long term (current) drug therapy; Z99.81 Dependence on supplemental oxygen
CPT/HCPCS: 36415; 71046; 71046-26; 80053; 81001; 83605; 85025; 86140; 87040; 93005; 93010; 94640; 96374; 99283; 99285-25; J2919; J3490

== ENCOUNTER 2025-02-24 10:03 | Inpatient (IN) | payer MEDICARE, OTHER ==
[2025-02-24] MEDS: methylPREDNISolone Sodium Succinate 125 MG/2 ML SDV IVPUSH ONE (11:11)
[2025-02-24 11:19] LABS: BASOPHILS ABSOLUTE AUTO 0.0 K/mm3 (0.0-0.2); BASOPHILS PERCENT AUTO 0.3 % (0.0-1.0); EOSINOPHILS ABSOLUTE AUTO 0.1 K/mm3 (0.0-0.4); EOSINOPHILS PERCENT AUTO 2.3 % (0.0-6.0); IMMATURE GRAN ABSOLUTE AUTO 0.02 K/mm3 (0.00-0.05); IMMATURE GRAN PERCENT AUTO 0.3 % (0.0-0.4); LYMPHOCYTES ABSOLUTE AUTO 0.7 K/mm3 (1.0-4.8); LYMPHOCYTES PERCENT AUTO 11.2 % (24.0-44.0); MEAN PLATELET VOLUME 10.1 fl (9.4-12.4); MONOCYTES ABSOLUTE AUTO 0.8 K/mm3 (0.0-0.8); MONOCYTES PERCENT AUTO 12.2 % (0.0-8.0); NEUTROPHILS ABSOLUTE AUTO 4.5 K/mm3 (1.8-7.7); NEUTROPHILS PERCENT AUTO 73.7 % (41.0-71.0); NRBC ABSOLUTE 0.00 (0.00-0.02); NRBC PERCENT 0.0 % (0.0-0.2); PLATELET COUNT,PLT 145 K/mm3 (150-400); RED BLOOD CELL COUNT 4.62 M/mm3 (4.52-5.90); WHITE BLOOD CELL COUNT,WBC 6.15 K/mm3 (3.9-11.3)
[2025-02-24 11:25] LABS: BASE EXCESS ARTERIAL 28.2 (-2-2.0); BICARBONATE,ARTERIAL 59.9 meq/L (22.0-26.0); O2 SATURATION ARTERIAL 91.1 % (96.0-97.0); PCO2 ARTERIAL 99.0 mmHg (35.0-45.0); PO2 ARTERIAL 54.0 mmHg (80.0-100.0)
[2025-02-24 11:36] LABS: INR 1.06
[2025-02-24 11:52] LABS: A/G RATIO 1.3 (1-2); ALANINE AMINOTRANSFERASE,ALT 17 U/L (16-63); ASPARTATE AMNIOTRANSFERASE,AST 15 U/L (15-37); BILIRUBIN TOTAL 0.4 mg/dL (0.2-1.0); BLOOD UREA NITROGEN,BUN 20 mg/dL (7-18); CHLORIDE,CL 99 mEq/L (98-107); CREATINE KINASE,CK 25 U/L (39-308); CREATININE 0.8 mg/dL (0.7-1.3); ESTIMATED GFR 87 mL/min (>60); GLUCOSE RANDOM 119 mg/dL (70-99); POTASSIUM,K 5.1 mEq/L (3.5-5.1); PROTEIN TOTAL,TP 5.8 g/dl (6.4-8.2); SODIUM,NA 143 mEq/L (136-145); TROPONIN I HIGH SENSITIVITY 14 pg/mL (<=76)
[2025-02-24 12:09] LABS: CARBON DIOXIDE,CO2 52 mEq/L (21-32)
[2025-02-24 12:37] LABS: BASE EXCESS ARTERIAL 21.1 (-2-2.0); BICARBONATE,ARTERIAL 52.3 meq/L (22.0-26.0); O2 SATURATION ARTERIAL 99.1 % (96.0-97.0); PCO2 ARTERIAL 97.0 mmHg (35.0-45.0); PO2 ARTERIAL 91.0 mmHg (80.0-100.0)
[2025-02-24 12:38] LABS: PATIENT RESPIRATORY RATE 20.0 /MIN
[2025-02-24] MEDS: Magnesium Sulfat/D5W 1GM/100ML 1 GM in Premix Bag 1 BAG IV ONE (17:08)
[2025-02-24] MEDS: methylPREDNISolone Sodium Succinate 40 MG/1 ML SDV IVPUSH SCH (17:08)
[2025-02-24] MEDS: Tiotropium BR/Olodaterol HCL 4 GM Inhalation Spray 2.5mcg/1 dose; 10 doses INH SCH (17:09)
[2025-02-24] MEDS ORDERED: Naloxone 0.4 MG/ML SDV IVPUSH PRN (17:27)
[2025-02-24] MEDS ORDERED: Ondansetron 4 MG Tab.DIS PO PRN (17:27)
[2025-02-24] MEDS ORDERED: Sennosides/Docusate Sodium 50-8.6 MG Tab PO PRN (17:27)
[2025-02-24 19:13] LABS: CORONAVIRUS COVID-19 NAA NEGATIVE (NEGATIVE); INFLUENZA A NAA NEGATIVE (NEGATIVE); RESPIRATORY SYNCYTIAL VIR NAA NEGATIVE (NEGATIVE)
[2025-02-25] MEDS: Ondansetron 4 MG/2 ML SDV IV PRN (03:36)
[2025-02-25 04:05] LABS: BASE EXCESS ARTERIAL 20.3 (-2-2.0); BICARBONATE,ARTERIAL 50.2 meq/L (22.0-26.0); O2 SATURATION ARTERIAL 93.9 % (96.0-97.0); PCO2 ARTERIAL 83.0 mmHg (35.0-45.0); PO2 ARTERIAL 71.0 mmHg (80.0-100.0)
[2025-02-25 04:06] LABS: PATIENT RESPIRATORY RATE 23.0 /MIN
[2025-02-25 05:29] LABS: BASOPHILS ABSOLUTE AUTO 0.0 K/mm3 (0.0-0.2); BASOPHILS PERCENT AUTO 0.1 % (0.0-1.0); EOSINOPHILS ABSOLUTE AUTO 0.0 K/mm3 (0.0-0.4); EOSINOPHILS PERCENT AUTO 0.0 % (0.0-6.0); IMMATURE GRAN ABSOLUTE AUTO 0.04 K/mm3 (0.00-0.05); IMMATURE GRAN PERCENT AUTO 0.6 % (0.0-0.4); LYMPHOCYTES ABSOLUTE AUTO 0.4 K/mm3 (1.0-4.8); LYMPHOCYTES PERCENT AUTO 5.4 % (24.0-44.0); MEAN PLATELET VOLUME 10.5 fl (9.4-12.4); MONOCYTES ABSOLUTE AUTO 0.3 K/mm3 (0.0-0.8); MONOCYTES PERCENT AUTO 4.6 % (0.0-8.0); NEUTROPHILS ABSOLUTE AUTO 6.1 K/mm3 (1.8-7.7); NEUTROPHILS PERCENT AUTO 89.3 % (41.0-71.0); NRBC ABSOLUTE 0.00 (0.00-0.02); NRBC PERCENT 0.0 % (0.0-0.2); PLATELET COUNT,PLT 160 K/mm3 (150-400); RED BLOOD CELL COUNT 4.61 M/mm3 (4.52-5.90); WHITE BLOOD CELL COUNT,WBC 6.81 K/mm3 (3.9-11.3)
[2025-02-25 05:43] LABS: A/G RATIO 1.2 (1-2); ALANINE AMINOTRANSFERASE,ALT 18.0 U/L (16-63); ASPARTATE AMNIOTRANSFERASE,AST 14.0 U/L (15-37); BILIRUBIN TOTAL 0.6 mg/dL (0.2-1.0); BLOOD UREA NITROGEN,BUN 24.0 mg/dL (7-18); CHLORIDE,CL 99.0 mEq/L (98-107); CREATININE 0.9 mg/dL (0.7-1.3); EST CRCL DRUG DOSING (CG) 45.2 mL/min; ESTIMATED GFR 84.0 mL/min (>60); GLUCOSE RANDOM 151.0 mg/dL (70-99); PHOSPHORUS 3.2 mg/dL (2.6-4.7); POTASSIUM,K 4.9 mEq/L (3.5-5.1); PROTEIN TOTAL,TP 6.0 g/dl (6.4-8.2); SODIUM,NA 141.0 mEq/L (136-145)
[2025-02-25 05:48] LABS: CARBON DIOXIDE,CO2 42.0 mEq/L (21-32)
[2025-02-25 08:43] LABS: BORDETELLA PARAPERT IS1001 Not Detected (Not Detected)
[2025-02-25] MEDS ORDERED: Fluticasone NASAL Spray 16 GM Bottle NASBOTH PRN (14:51)
[2025-02-25] MEDS: methylPREDNISolone Sodium Succinate 40 MG/1 ML SDV IVPUSH SCH (20:10)
[2025-02-26 05:48] LABS: BLOOD UREA NITROGEN,BUN 29.0 mg/dL (7-18); CHLORIDE,CL 100.0 mEq/L (98-107); CREATININE 0.8 mg/dL (0.7-1.3); EST CRCL DRUG DOSING (CG) 51.24 mL/min; ESTIMATED GFR 87.0 mL/min (>60); GLUCOSE RANDOM 127.0 mg/dL (70-99); POTASSIUM,K 4.5 mEq/L (3.5-5.1); SODIUM,NA 142.0 mEq/L (136-145)
[2025-02-26 06:16] LABS: CARBON DIOXIDE,CO2 42.0 mEq/L (21-32)
[2025-02-26] MEDS ORDERED: hydrALAZINE 20 MG/ML SDV IVPUSH PRN (17:36)
[2025-02-26] MEDS ORDERED: Labetalol 100 MG/20 ML MDV IVPUSH PRN (17:36)
[2025-02-27 04:56] LABS: BLOOD UREA NITROGEN,BUN 30.0 mg/dL (7-18); CHLORIDE,CL 101.0 mEq/L (98-107); CREATININE 0.8 mg/dL (0.7-1.3); EST CRCL DRUG DOSING (CG) 51.24 mL/min; ESTIMATED GFR 87.0 mL/min (>60); GLUCOSE RANDOM 156.0 mg/dL (70-99); POTASSIUM,K 4.3 mEq/L (3.5-5.1); SODIUM,NA 145.0 mEq/L (136-145)
[2025-02-27 05:12] LABS: CARBON DIOXIDE,CO2 42.0 mEq/L (21-32)
[2025-03-01 14:02] VITALS: BP 158/75; PULSE 69
== END 2025-03-01 13:40 | DRG 193 ==
LOC: JD.ED 10:03 → JD.ICU 13:00
PROVIDERS: ADMIT Student in an Organized Health Care Education/Training Program; ATTEND Student in an Organized Health Care Education/Training Program
PROC: 5A09357 Assistance with Respiratory Ventilation, Less than 24 Consecutive Hours, Continuous Positive Airway Pressure (ICD-10-PCS; principal; 2025-02-24)
PROC: 4A133R1 Monitoring of Arterial Saturation, Peripheral, Percutaneous Approach (ICD-10-PCS; principal; 2025-02-24)
PROC: 3E03329 Introduction of Other Anti-infective into Peripheral Vein, Percutaneous Approach (ICD-10-PCS; 2025-02-24)
DX: J18.9 Pneumonia, unspecified organism (principal); J96.21 Acute and chronic respiratory failure with hypoxia; J96.22 Acute and chronic respiratory failure with hypercapnia; J44.1 Chronic obstructive pulmonary disease with (acute) exacerbation; L03.116 Cellulitis of left lower limb; J44.0 Chronic obstructive pulmonary disease with (acute) lower respiratory infection; R64 Cachexia; Z68.1 Body mass index [BMI] 19.9 or less, adult; E87.29 Other acidosis; Z66 Do not resuscitate; K59.09 Other constipation; N40.0 Benign prostatic hyperplasia without lower urinary tract symptoms; J43.9 Emphysema, unspecified; F41.9 Anxiety disorder, unspecified; R19.7 Diarrhea, unspecified; Z79.899 Other long term (current) drug therapy; Z85.46 Personal history of malignant neoplasm of prostate; Z98.890 Other specified postprocedural states; Z99.81 Dependence on supplemental oxygen; Z79.52 Long term (current) use of systemic steroids; Z87.891 Personal history of nicotine dependence
CPT/HCPCS: 36415; 36600 ×2; 71045; 80053; 82550; 82803 ×2; 83605; 83690; 83735; 83880; 84484; 85025; 85610; 86140; 87040 ×2; 94640; 94660; 96365; 96375; 99285; A9270; J0456; J0696; J2919; J7030; J7050; 80048; 82947; 84100; 87252; 87486; 87493; 87581; 87633; 87637; 93005; 94667; 94668; 94761; 97110-GP; 97116-GP; 97161-GP; 97166-GO; 97530-GP; 97535-GO; J1308; J1650; J2405; J2543; J3475; J7512